=== PATIENT | female | born 1950 | race Caucasian/White ===

== ENCOUNTER 2020-06-28 08:33 | Outpatient (REF) | payer MEDICARE, OTHER, SELFPAY | END 2020-06-28 08:34 | disposition home or self-care (01) | LOC: HO.LAB 08:33 | PROVIDERS: Visit Provider Internal Medicine | DX: Z20.828 Contact with and (suspected) exposure to other viral communicable diseases (principal) | CPT/HCPCS: C9803; U0003 ==

== ENCOUNTER 2021-03-03 10:00 | Outpatient (RCR) | payer MEDICARE, OTHER, SELFPAY ==
[2021-01-24 12:58] VITALS: BP 140/70
== END 2021-04-14 15:04 | disposition home or self-care (01) ==
LOC: HO.PTCHIC 10:00
PROVIDERS: PCP Internal Medicine; Visit Provider Nurse Practitioner Adult Health
DX: H81.10 Benign paroxysmal vertigo, unspecified ear (principal)
CPT/HCPCS: 95992; 97110; 97112; 97162; 97530

== ENCOUNTER 2023-02-12 10:13 | Outpatient (REF) | payer MEDICARE, OTHER, SELFPAY ==
[2023-02-12 14:28] LABS: TSH reflex Free T4 1.48 uIU/mL (0.32-4.0)
[2023-02-12 15:29] LABS: Folate 12.3 ng/mL (> or = 4.0); Vitamin B12 702 pg/mL (200-900)
[2023-02-15 22:04] LABS: Transglutaminase Ab IgG <1.0 U/mL; Transglutaminase IgA <1.0 U/mL
[2023-02-17 12:39] LABS: Vitamin D 25-OH, D2 <4 ng/mL; Vitamin D 25-OH, D3 51 ng/mL; Vitamin D 25-OH, Total 51 ng/mL (30-100)
== END 2023-02-12 10:14 | disposition home or self-care (01) ==
LOC: HO.LAB 10:13
PROVIDERS: PCP Internal Medicine; Visit Provider Nurse Practitioner Family
DX: Z01.818 Encounter for other preprocedural examination (principal); K21.9 Gastro-esophageal reflux disease without esophagitis; K58.1 Irritable bowel syndrome with constipation; K58.0 Irritable bowel syndrome with diarrhea; K59.01 Slow transit constipation; R14.0 Abdominal distension (gaseous); R10.13 Epigastric pain; E55.9 Vitamin D deficiency, unspecified
CPT/HCPCS: 36415; 82306; 82607; 82746; 84443; 86364; 87338

== ENCOUNTER 2023-03-17 10:34 | Outpatient (AMB) | payer MEDICARE, OTHER, SELFPAY ==
[2023-03-17 10:42] VITALS: BP 129/60; PULSE 62; BMI 18.7
--- NOTE | 2023-03-17 10:42 | MHC.OFFVIS ---
Intake Vital Signs 03/17/23 10:42 Height 5 ft 8 in Weight 123 lb 0.287 oz BMI 18.7 BP 129/60 Blood Pressure Location Lt brachial Position Sitting Pulse 62 Intake Visit Reasons: 5 week fu Intake Note: Romelia presents in office as a est.patient for a 5wk f/u for IBS, GERD, CIC. 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 Patient denies melena, hematochezia, unintentional weight loss or ribbon like stools. Postprandial abdominal bloating Patient reports postprandial abdominal bloating. Discussed with patient low FODMAP diet. List of food recommended as well as list of food to avoid given to patient. Patient also reports occasional dyspepsia and epigastric discomfort and we will check for H pylori, check transglutaminase. Constipation Patient reports constipation. Will send her script for Linzess. Patient was encouraged to increase fluid intake and activity to promote better bowel motility. Dyspepsia Patient reports occasional dyspepsia. Will give patient famotidine twice a day. Patient does have osteopenia with rather not take PPI. However if H pylori positive patient will need to be on short treatment with PPI. I will see patient 5 weeks, sooner on as needed basis. Patient is agreeable to this plan and verbalizes understanding of instructions. She was given the opportunity to ask questions and all questions answered. ? Thank you for allowing me to participate in her care we Plan Orders Orders Vitamin B12 and Folate 02/12/23 R19.7 TSH reflex Free T4 02/12/23 K59.00 Vitamin D 25-OH (D2 and D3) 02/12/23 E55.9 Transglutaminase IgA 02/12/23 R10.9 Transglutaminase Ab IgG 02/12/23 R10.9 H pylori Ag Stool 02/12/23 K21.9 Medications New linaclotide (Linzess) 72 mcg PO DAILY 30 caps 2RF famotidine (Pepcid) 20 mg PO BID 60 tabs 3RF K29.70 TODAY'S VISIT Patient is here today for follow-up and to discuss going for colonoscopy. Patient had colonoscopy in February of 2012. Patient had upper endoscopy in 2019. Patient continues with severe epigastric discomfort and burning. Patient reports that she eats fairly healthy. States that famotidine is not helpful. She continues with symptoms of dyspepsia without dysphagia or odynophagia. However patient does admit that occasionally in the morning she has trouble swallowing bread. Patient can not eat anything dry without feeling like it is getting stuck. Patient continues to have trouble moving her bowels. States that she is able to move her bowels when she take Linzess, he however does not feel like she empties them completely. Patient reports a long history of having constipation. Patient states that she eats lots of fruits and vegetables. Denies melena, hematochezia, unintentional weight loss or ribbon like stools. Patient denies any issues with anesthesia in the past. No history of sleep apnea. Not on any anticoagulation medication. Denies any cardiac or respiratory symptoms. [facility] Surgical History Hx of discectomy Family History Mother High cholesterol HTN (hypertension) Father HTN (hypertension) Diabetes Heart disease Social History Household Members: Significant Other Alcohol intake: never Patient Tobacco Use Status: Never used Tobacco Review of Systems Const Denies weight gain and Denies weight loss ENT Reports no additional complaints, Reports dysphagia and Denies odynophagia Card Reports no additional complaints Resp Reports no additional complaints GI Denies abdominal pain, Denies belching, Denies melena, Reports bloating, Denies change in bowel habits, Reports constipation, Reports dysphagia, Denies excessive flatus, Reports dyspepsia, Reports heartburn, Denies diarrhea, Denies loose stools, Denies nausea, Denies odynophagia and Denies vomiting Reports no additional complaints Musc Reports no additional complaints Neuro Reports no additional complaints Psych Reports no additional complaints Endo Reports no additional complaints Physical Exam Vital Signs: Last Vital Signs Pulse 62 03/17/23 10:42 BP 129/60 03/17/23 10:42 BMI result Body Mass Index 18.7 Const General: healthy appearing, no acute distress and well developed Nutritional Appearance: well nourished Orientation/consciousness: patient oriented x3 HEENT Head: Yes normal to inspection, Yes normocephalic and Yes atraumatic Face and sinus: Yes normal facial exam Mouth: Normal oral and palatal mucosa present Throat: Yes posterior oropharynx normal, Yes tonsils normal and Yes uvula midline Eyes General: appearance normal, both eyes and all related structures Neck Neck: Yes normal visual inspection, Yes full ROM and Yes trachea midline Thyroid: Thyroid normal Resp Effort & Inspection: normal respiratory effort, able to speak in complete sentences, no tracheal deviation and symmetric chest movement Auscultation: clear to auscultation bilaterally Cardio Rate: regular rate Heart sounds: S1 normal heart sound present and S2 normal heart sound present GI Inspection: Yes normal to inspection and No distended Palpation (GI): Soft to palpation, not firm, nontender and No hepatosplenomegaly present Auscultation: normal bowel sounds General: Yes no CVA tenderness Back/Spine/Pelvis Back: no CVA tenderness Skin General skin exam: elasticity normal, turgor normal and dry skin Neuro General: patient oriented x3 Psych Appearance: grossly normal Mental Status: mental status grossly normal Speech and movement: Normal speech and movement present Results Reviewed Results Reviewed: Laboratory Tests 02/12/23 02/12/23 02/12/23 11:44 11:44 11:44 Vitamin B12 702 25-OH Vitamin D Total 51 Folate 12.3 TSH 1.48 Tiss Transglutamin IgG Tiss Transglutamin IgA 02/12/23 11:44 Vitamin B12 25-OH Vitamin D Total Folate TSH Tiss Transglutamin IgG <1.0 Tiss Transglutamin IgA <1.0 H pylori negative Assessment & Plan Assessment & Plan (1) Screen for colon cancer: Code(s): Z12.11 - Encounter for screening for malignant neoplasm of colon Plan: Patient denies any issues with anesthesia in the past. Last colonoscopy in 2011. Patient denies melena, hematochezia, unintentional weight loss or ribbon like stools. Patient is not on any anticoagulation therapy. No history of sleep apnea. Discussed with patient the importance of good bowel prep day before the procedure. The I will increase her Linzess to 145 mcg daily. What to expect before during and after the procedure discussed with patient. (2) Postprandial abdominal bloating: Code(s): R14.0 - Abdominal distension (gaseous) Plan: Patient reports postprandial abdominal bloating. Specially when she is having trouble moving her bowels. Low FODMAP diet discussed with patient. List of food recommended as well as list of food to avoid given to patient. (3) Constipation: Code(s): K59.00 - Constipation, unspecified Qualifiers: Constipation type: chronic idiopathic constipation Qualified Code(s): K59.04 - Chronic idiopathic constipation Plan: Long history of constipation. Increased Linzess to 145 mcg daily. Patient was also encouraged to increase fluid intake and activity to promote better bowel motility. (4) GERD (gastroesophageal reflux disease): Code(s): K21.9 - Gastro-esophageal reflux disease without esophagitis Qualifiers: Esophagitis presence: esophagitis presence not specified Qualified Code(s): K21.9 - Gastro-esophageal reflux disease without esophagitis Plan: Patient can stop famotidine. She can take it on as needed basis at bedtime. I will start her on omeprazole every morning. Patient will be sent for upper endoscopy. Discussed with patient avoiding dietary triggers in late night snacking. Staying upright for minimal 3 hours after meals discussed with patient. (5) Dyspepsia: Code(s): R10.13 - Epigastric pain Plan: Patient reports dyspepsia with occasional dysphagia specially in the morning. Patient will be sent for upper endoscopy to rule out Schatzki ring, severe reflux, eosinophilic esophagitis, gastritis, gastric or duodenal ulcer, Mcnair's. I will see patient after the procedure, sooner on as needed basis. Patient is agreeable to this plan and verbalizes understanding of instructions. She was given the opportunity to ask questions and all questions answered. Thank you for allowing me to participate in her care Medications: New linaclotide (Linzess) 145 mcg PO DAILY 30 caps 4RF K59.04 - Chronic idiopathic constipation omeprazole 20 mg PO DAILY 30 caps 3RF K21.9 - Gastro-esophageal reflux disease without esophagitis Discontinued linaclotide (Linzess) Discontinued Reason: Doctor's Order 72 mcg PO DAILY 30 caps 2RF famotidine (Pepcid) Discontinued Reason: Doctor's Order 20 mg PO BID 60 tabs 3RF K29.70 - Gastritis, unspecified, without bleeding Coding Level of Care Code Est Pt Level 4 (81491) Diagnoses Screen for colon cancer Z12.11 Postprandial abdominal bloating R14.0 Constipation K59.04 Constipation type: chronic idiopathic constipation GERD (gastroesophageal reflux disease) K21.9 Esophagitis presence: esophagitis presence not specified Dyspepsia R10.13 Time Spent (min) 35 Comment 20 minutes spent with patient and additional 15 minutes spent reviewing her records
== END 2023-03-17 11:23 | disposition home or self-care (01) ==
PROVIDERS: PCP Internal Medicine; Visit Provider Nurse Practitioner Family
DX: R14.0 Abdominal distension (gaseous) (principal); K59.04 Chronic idiopathic constipation; K21.9 Gastro-esophageal reflux disease without esophagitis; R10.13 Epigastric pain
CPT/HCPCS: 99214

== ENCOUNTER → 2023-03-17 10:34 | Outpatient (BNVA) | payer MEDICARE, OTHER, SELFPAY | PROVIDERS: PCP Internal Medicine; Visit Provider Nurse Practitioner Family | DX: R14.0 Abdominal distension (gaseous) (principal); K59.04 Chronic idiopathic constipation; K21.9 Gastro-esophageal reflux disease without esophagitis; R10.13 Epigastric pain | CPT/HCPCS: 99212 ==

== ENCOUNTER 2023-07-20 12:02 | Day surgery (SDC) | payer MEDICARE, OTHER, SELFPAY ==
--- NOTE | 2023-07-19 12:29 | HO.ANESPROP2 ---
Documented by User: Rosanna Mueller NP 07/19/23 12:30 HPI - Anesthesia Eval Consult details Narrative: 73yo F for Upper Endoscopy and Colonoscopy FOR[facility]LY [facility], [facility] Past Medical History Medical History Lyme disease Vertigo Migraines GERD (gastroesophageal reflux disease) Osteoarthritis Migraine Osteopenia Fibromyalgia Constipation GERD (gastroesophageal reflux disease) Family History Family History Mother High cholesterol HTN (hypertension) Father HTN (hypertension) Diabetes Heart disease Surgical History Surgical History History of surgery History of rectal surgery Hx of discectomy Social History Social History Household Members: Significant Other Alcohol intake: never Patient Tobacco Use Status: Never used Tobacco Use of substances other than those prescribed or required for medical reasons: No Are you DNR?: No Advance Directives: No Advance Directives Information Provided: Yes Meds Allergies Allergy/AdvReac Type Severity Reaction Status Date / Time hydroxychloroquine Allergy Severe Anaphylaxis Verified 07/20/23 12:50 [Plaquenil] From [facility] Allergy Severe FACIAL Uncoded 07/20/23 12:50 SWELLING, THRUSH Erythromycin AdvReac Mild Abdominal Uncoded 07/20/23 12:50 Pain Home Medications Medication Instructions Recorded Confirmed Last Taken Type desipramine 10 mg tablet 10 mg PO BEDTIME 02/12/23 Unknown History meclizine 25 mg tablet 25 mg PO DAILY PRN 02/12/23 Unknown History sumatriptan succinate 25 mg tablet 25 mg PO Q2-4H PRN 02/12/23 Unknown History Assessment and Plan Assessment Anesthesia Assessment: Chart Reviewed Documented by User: Arash Lombardo MD 07/20/23 13:52 FOR[facility]LY [facility] Past Medical History Medical History Lyme disease Vertigo Migraines GERD (gastroesophageal reflux disease) Osteoarthritis Migraine Osteopenia Fibromyalgia Constipation GERD (gastroesophageal reflux disease) Family History Family History Mother High cholesterol HTN (hypertension) Father HTN (hypertension) Diabetes Heart disease Family history of problems with anesthesia: No Surgical History Surgical History History of surgery History of rectal surgery Hx of discectomy History of Problems with Anesthesia: No Social History Social History Household Members: Significant Other Alcohol intake: never Patient Tobacco Use Status: Never used Tobacco Use of substances other than those prescribed or required for medical reasons: No Are you DNR?: No Advance Directives: No Advance Directives Information Provided: Yes Meds Allergies Allergy/AdvReac Type Severity Reaction Status Date / Time hydroxychloroquine Allergy Severe Anaphylaxis Verified 07/20/23 12:50 [Plaquenil] From [facility] Allergy Severe FACIAL Uncoded 07/20/23 12:50 SWELLING, THRUSH Erythromycin AdvReac Mild Abdominal Uncoded 07/20/23 12:50 Pain Home Medications Medication Instructions Recorded Confirmed Last Taken Type desipramine 10 mg tablet 10 mg PO BEDTIME 02/12/23 Unknown History meclizine 25 mg tablet 25 mg PO DAILY PRN 02/12/23 Unknown History sumatriptan succinate 25 mg tablet 25 mg PO Q2-4H PRN 02/12/23 Unknown History Exam Airway Mallampati Class: II TM Dist: >3cm Neck ROM: Full Loose/Missing/Broken Teeth: Yes Assessment and Plan Assessment Anesthesia Assessment: Anesthesia Plan Discussed Final Anesthetic Review Family History of Problems with Anesthesia: No History of Problems with Anesthesia: No NPO: Yes ASA Class: II Final Preanesthetic Review: No Changes in Pt Med Stat, Meds/Allgs Chart Reviewed, Consent Obtained/Reviewed and Anes Risks/Benef Reviewed Patient Risk: Low Procedure Risk: Low Anesthetic Plan Anesthetic Plan: MAC: Disposition: Standard PACU
[2023-07-20 12:41] VITALS: BMI 20.7
[2023-07-20 12:54] VITALS: BP 130/40; PULSE 54; RESP 16; TEMP 37.1; O2SAT 99
[2023-07-20] MEDS: Lactated Ringers 1,000 ML 100 ML IVCONT (13:13)
--- NOTE | 2023-07-20 13:45 | MHC.SHP ---
Pre-Procedural Eval Section A Date of Service: 07/20/23 Section B Chief Complaint: gerd Relevant Family History (Specify if Yes): No Relevant Social History: None Present Medications: see Short Stay Collaborative assessment Medical History: Significant History (Lyme disease Vertigo Migraines GERD (gastroesophageal reflux disease) Osteoarthritis Migraine Osteopenia Fibromyalgia Constipation GERD (gastroesophageal reflux disease)) History of Previous Operations: Relevant previous surgery/procedure and date(s) (History of surgery History of rectal surgery Hx of discectomy) Allergies: Allergies Allergy/AdvReac Type Severity Reaction Status Date / Time hydroxychloroquine Allergy Severe Anaphylaxis Verified 07/20/23 12:50 [Plaquenil] From [facility] Allergy Severe FACIAL Uncoded 07/20/23 12:50 SWELLING, THRUSH Erythromycin AdvReac Mild Abdominal Uncoded 07/20/23 12:50 Pain Review of Systems Sugical H&P ROS: Negative: Constitution, Cardiovascular, Respiratory, Neurological, Psychiatric, Hem-Onc, Allergic/Immunologic, Gastrointestinal, Genitourinary, Musculoskeletal, Integumentary, Endocrine and Eyes/Ears/Nose/Throat Exam Surgical H&P Exam: Normal: HEENT, Normal: Heart, Normal: Lungs, Normal: Extremities, Normal: Abdomen, Normal: Skin and Normal: Neurological Plan Diagnosis/Plan: Unchanged I have reviewed the history and physical and performed a pertinent physical examination on my patient. No changes have occurred unless specified. Time Spent With Patient Time: Total time managing care of this patient today ____ minutes.
--- NOTE | 2023-07-20 14:14 | W.PM.OPN ---
Operative Note Operative Note Date of Service: 07/20/23 Narrative: Operative Information Procedure Description: EGD, Colonoscopy Indication: GERd, screening Anesthesia: MAC FLEXIBLE TRANSORAL UPPER GASTROINTESTINAL ENDOSCOPY AND COLONOSCOPY PROCEDURE NOTE UPPER ENDOSCOPY Consent: Indications for the procedure and potential complications of bleeding, perforation, reaction to medications and missed diagnosis were discussed with the patient and informed consent was obtained. Instrument: Olympus GIF H 190 J mid size upper endoscope Monitoring: Vital signs and clinical assessment, continuous EKG monitoring, Pulse oximetry, Carbon Dioxide monitoring and blood pressure monitoring were done throughout the procedure. Procedure: The patient was placed in the left lateral decubitis position and pre-procedure medications were administered and a bite block was placed. The endoscope was inserted into the mouth and advanced under direct vision to the third part of duodenum. A careful inspection was made as the upper endoscope was withdrawn including a retroflexed examination of the proximal stomach; Findings and interventions are described below. Findings: Larynx:normal Esophagus: GE junction at 35 cm, diaphragm hiatus at 35 cm, esophagitis at GEJ Stomach: Patchy erythema . Biopsies were obtained. Grade 2 flap valve on retroflexed examination of the cardia. 4-6 mm polyp in fundus removed with cold biopsy forceps Duodenum: Normal bulb and descending duodenum, Intervention: Biopsies as noted above COLONOSCOPY Instrument: Olympus variable stiffness pediatric scope 190L Colonoscopy Monitoring: Vital signs and clinical assessment, continuous EKG monitoring, Pulse oximetry, Carbon Dioxide monitoring and blood pressure monitoring were done throughout the procedure. Colon withdrawal time was 8 minutes. Procedure: The patient was placed in the left lateral decubitis position and pre-procedure medications were administered. After a digital rectal examination of the ano-rectum, the video colonoscope was inserted into the rectum and advanced through the colon to the cecum/TI. The colonoscope was slowly withdrawn in a retrograde panoramic fashion and the colon mucosa was carefully examined including a retroflexed view of the rectum. Findings and interventions are described below. Procedure Difficulty:easy Findings: Terminal Ileum-normal Melanosis coli throughout colon Cecum:normal Ascending Colon: 10 mm sessile polyp remvoed with cold snare Transverse Colon -normal Descending Colon:normal Sigmoid Colon: normal Rectum: Retroflexion with small internal hemorrhoids, grade I Anorectum - normal Colon preparation: [place] Bowel Preparation Scale Right colon; 2 Transverse colon: 2 Left colon; 2 (0 = Unprepared colon segment with mucosa not seen due to solid stool that cannot be cleared. 1 = Portion of mucosa of the colon segment seen, but other areas of the colon segment not well seen due to staining, residual stool and/or opaque liquid. 2 = Minor amount of residual staining, small fragments of stool and/or opaque liquid, but mucosa of colon segment seen well. 3 = Entire mucosa of colon segment seen well with no residual staining, small fragments of stool or opaque liquid) Impression and Post Procedure Diagnosis: Endoscopy Findings: gastritis polyp Colonoscopy Findings: polyp internal hemorrhoids Plan: Await Pathology results Repeat Colonoscopy in 5 years or earlier if clinically indicated High fiber diet leaflet avoid straining at stool, epsom salts and sitz bath, anusol supps or cream if h pylori pos then treat Above findings were reviewed with the patient and relevant handouts were provided if indicated.
[2023-07-20 14:40] VITALS: BP 125/54; PULSE 62; RESP 16; TEMP 36.1; O2SAT 99
[2023-07-20 14:55] VITALS: BP 139/45; PULSE 56; RESP 16; TEMP 36.6; O2SAT 99
== END 2023-07-20 15:33 | disposition home or self-care (01) ==
PROVIDERS: PCP Internal Medicine; Visit Provider Internal Medicine Gastroenterology
PROC: (CPT 45385; principal; 2023-07-20 14:10)
DX: Z12.11 Encounter for screening for malignant neoplasm of colon (principal); K63.5 Polyp of colon; K63.89 Other specified diseases of intestine; K64.0 First degree hemorrhoids; K59.00 Constipation, unspecified; K21.9 Gastro-esophageal reflux disease without esophagitis; K31.7 Polyp of stomach and duodenum; K20.80 Other esophagitis without bleeding; K29.50 Unspecified chronic gastritis without bleeding; K44.9 Diaphragmatic hernia without obstruction or gangrene; M79.7 Fibromyalgia; M19.90 Unspecified osteoarthritis, unspecified site; M85.80 Other specified disorders of bone density and structure, unspecified site; A69.20 Lyme disease, unspecified; R42 Dizziness and giddiness; G43.909 Migraine, unspecified, not intractable, without status migrainosus; Z79.899 Other long term (current) drug therapy; Z88.1 Allergy status to other antibiotic agents; Z88.8 Allergy status to other drugs, medicaments and biological substances; Z98.890 Other specified postprocedural states
CPT/HCPCS: 45385; 43239; 88305; 88342; J2704

== ENCOUNTER → 2023-07-20 12:02 | Outpatient (BNV) | payer MEDICARE, OTHER, SELFPAY | PROVIDERS: PCP Internal Medicine; Visit Provider Internal Medicine Gastroenterology | DX: Z12.11 Encounter for screening for malignant neoplasm of colon (principal); K21.9 Gastro-esophageal reflux disease without esophagitis; K31.7 Polyp of stomach and duodenum; D12.2 Benign neoplasm of ascending colon; K64.0 First degree hemorrhoids; K63.89 Other specified diseases of intestine | CPT/HCPCS: 43250; 45385 ==

== ENCOUNTER 2023-08-18 11:23 | Outpatient (AMB) | payer MEDICARE, OTHER, SELFPAY ==
--- NOTE | 2023-08-18 11:26 | MHC.OFFVIS ---
Intake Vital Signs 08/18/23 11:29 Height 5 ft 4 in Weight 120 lb BMI 20.6 BP 118/55 L Blood Pressure Location Lt brachial Position Sitting Pulse 65 Intake Visit Reasons: s/p egd/colon Intake Note: Patient follow up for EGD/Colonoscopy results. Patient cc: chronic constipation, and some swallowing problems and denies any GI issues. Site Physician Required: No Accompanied by: Self / Same As Patient Allergies hydroxychloroquine [Plaquenil] Allergy (Severe, Verified 08/18/23 11:26) Anaphylaxis From PLAQUENIL Allergy (Severe, Uncoded 07/20/23 12:50) FACIAL SWELLING, THRUSH Erythromycin Adverse Reaction (Mild, Uncoded 07/20/23 12:50) Abdominal Pain HPI s/p egd/colon HPI Details LAST VISIT Screen for colon cancer Patient denies any issues with anesthesia in the past. Last colonoscopy in 2011. Patient denies melena, hematochezia, unintentional weight loss or ribbon like stools. Patient is not on any anticoagulation therapy. No history of sleep apnea. Discussed with patient the importance of good bowel prep day before the procedure. The I will increase her Linzess to 145 mcg daily. What to expect before during and after the procedure discussed with patient. Postprandial abdominal bloating Patient reports postprandial abdominal bloating. Specially when she is having trouble moving her bowels. Low FODMAP diet discussed with patient. List of food recommended as well as list of food to avoid given to patient. Constipation Long history of constipation. Increased Linzess to 145 mcg daily. Patient was also encouraged to increase fluid intake and activity to promote better bowel motility. GERD (gastroesophageal reflux disease) Patient can stop famotidine. She can take it on as needed basis at bedtime. I will start her on omeprazole every morning. Patient will be sent for upper endoscopy. Discussed with patient avoiding dietary triggers in late night snacking. Staying upright for minimal 3 hours after meals discussed with patient. Dyspepsia Patient reports dyspepsia with occasional dysphagia specially in the morning. Patient will be sent for upper endoscopy to rule out Schatzki ring, severe reflux, eosinophilic esophagitis, gastritis, gastric or duodenal ulcer, Mcnair's. I will see patient after the procedure, sooner on as needed basis. Patient is agreeable to this plan and verbalizes understanding of instructions. She was given the opportunity to ask questions and all questions answered. ? Thank you for allowing me to participate in her care Plan Medications New linaclotide (Linzess) 145 mcg PO DAILY 30 caps 4RF K59.04 - Chronic idiopathic constipation omeprazole 20 mg PO DAILY 30 caps 3RF K21.9 - Gastro-esophageal reflux disease without esophagitis Discontinued linaclotide (Linzess) Discontinued Reason: Doctor's Order 72 mcg PO DAILY 30 caps 2RF famotidine (Pepcid) Discontinued Reason: Doctor's Order 20 mg PO BID 60 tabs 3RF K29.70 - Gastritis, unspecified, without bleeding UPPER ENDOSCOPY AND COLONOSCOPY ENDOSCOPY Findings: Larynx:normal Esophagus: GE junction at 35 cm, diaphragm hiatus at 35 cm, esophagitis at GEJ Stomach: Patchy erythema . Biopsies were obtained. Grade 2 flap valve on retroflexed examination of the cardia. 4-6 mm polyp in fundus removed with cold biopsy forceps Duodenum: Normal bulb and descending duodenum, Intervention: Biopsies as noted above COLONOSCOPY Findings: Terminal Ileum-normal Melanosis coli throughout colon Cecum:normal Ascending Colon: 10 mm sessile polyp remvoed with cold snare Transverse Colon -normal Descending Colon:normal Sigmoid Colon: normal Rectum: Retroflexion with small internal hemorrhoids, grade I Anorectum - normal Colon preparation: [place] Bowel Preparation Scale Right colon; 2 Transverse colon: 2 Left colon; 2 (0 = Unprepared colon segment with mucosa not seen due to solid stool that cannot be cleared. 1 = Portion of mucosa of the colon segment seen, but other areas of the colon segment not well seen due to staining, residual stool and/or opaque liquid. 2 = Minor amount of residual staining, small fragments of stool and/or opaque liquid, but mucosa of colon segment seen well. 3 = Entire mucosa of colon segment seen well with no residual staining, small fragments of stool or opaque liquid) Impression and Post Procedure Diagnosis: Endoscopy Findings: gastritis polyp Colonoscopy Findings: polyp internal hemorrhoids Plan: Await Pathology results Repeat Colonoscopy in 5 years or earlier if clinically indicated High fiber diet leaflet PATHOLOGY RESULTS: Diagnosis A. Stomach, biopsy: Antral-type and oxyntic mucosa with mild chronic inactive inflammation; no Helicobacter organisms seen. B. Stomach, polyp: Oxyntic mucosa with mild chronic inactive inflammation and surface hyperplastic changes; no Helicobacter organisms seen. C. Colon, ascending, polypectomy: Vegetable material only; no colonic tissue identified TODAY'S VISIT: Patient is here today for follow-up and to discuss upper endoscopy and colonoscopy results. Mild gastritis and polyps found. 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 Patient is taking mastic gum daily. Has tried Linzess, however states that she has no results. Patient has no results when drinking tea, however was told to stop due to discoloration Of the colon. Patient continues to report to have dysphagia. Patient has seen ENT in the past, however she was seeing them for vertigo. Patient was told that she had sinus issues and migraine headaches, however was told that her migraine headaches were caused by vascular congestion. Patient reports that she has multiple allergy, to different kind of mold and environmental allergy. Was taking Zyrtec, however states that she felt very dehydrated when taking it. Patient denies any nausea or vomiting. Patient denies any melena, hematochezia, unintentional weight loss or ribbon like stools. No issues with either procedure. [facility] Medical History Lyme disease Vertigo Migraines GERD (gastroesophageal reflux disease) Osteoarthritis Migraine Osteopenia Fibromyalgia Constipation GERD (gastroesophageal reflux disease) Surgical History History of surgery History of rectal surgery Hx of discectomy Family History Mother High cholesterol HTN (hypertension) Father HTN (hypertension) Diabetes Heart disease Social History Household Members: Significant Other Alcohol intake: never Patient Tobacco Use Status: Never used Tobacco Review of Systems Const Denies weight gain and Denies weight loss ENT Reports no additional complaints, Reports dysphagia and Denies odynophagia Card Reports no additional complaints Resp Reports no additional complaints GI Denies abdominal pain, Denies belching, Denies melena, Denies bloating, Reports constipation, Reports dysphagia, Denies excessive flatus, Denies dyspepsia, Denies heartburn, Denies diarrhea, Denies loose stools, Denies nausea, Denies odynophagia and Denies vomiting Reports no additional complaints Musc Reports no additional complaints Neuro Reports no additional complaints Psych Reports no additional complaints Endo Reports no additional complaints Physical Exam Vital Signs: Last Vital Signs Pulse 65 08/18/23 11:29 BP 118/55 L 08/18/23 11:29 BMI result Body Mass Index 20.6 Const General: healthy appearing, no acute distress and well developed Nutritional Appearance: well nourished Orientation/consciousness: patient oriented x3 Resp Effort & Inspection: normal respiratory effort, able to speak in complete sentences, no tracheal deviation and symmetric chest movement Auscultation: clear to auscultation bilaterally Cardio Rate: regular rate GI Inspection: Yes normal to inspection and No distended Palpation (GI): Soft to palpation, not firm, nontender and No hepatosplenomegaly present Auscultation: normal bowel sounds General: Yes no CVA tenderness Back/Spine/Pelvis Back: no CVA tenderness Skin General skin exam: elasticity normal, turgor normal and dry skin Neuro General: patient oriented x3 Psych Appearance: grossly normal Mental Status: mental status grossly normal Assessment & Plan Assessment & Plan (1) Postprandial abdominal bloating: Code(s): R14.0 - Abdominal distension (gaseous) (2) Constipation: Code(s): K59.00 - Constipation, unspecified Qualifiers: Constipation type: slow transit constipation Qualified Code(s): K59.01 - Slow transit constipation (3) GERD (gastroesophageal reflux disease): Code(s): K21.9 - Gastro-esophageal reflux disease without esophagitis Qualifiers: Esophagitis presence: without esophagitis Qualified Code(s): K21.9 - Gastro-esophageal reflux disease without esophagitis (4) Dyspepsia: Code(s): R10.13 - Epigastric pain (5) Dysphagia: Code(s): R13.10 - Dysphagia, unspecified Qualifiers: Dysphagia type: oropharyngeal phase Qualified Code(s): R13.12 - Dysphagia, oropharyngeal phase Plan No biopsy obtained from esophagus, no inflammation seen, will send patient for barium swallow. In the meantime patient will go and get allergen testing done for different foods. Patient has been on Flonase in the past and has not noticed any difference. Discussed with her avoiding dietary triggers. Possible eosinophilic reaction. Patient does admit that her voice is more hoarse. Symptoms of dysphagia mostly in the morning, patient usually tries to drink protein shake in the morning as she has trouble swallowing. I will see patient in 3 months, sooner on as needed basis. Patient is agreeable to this plan and verbalizes understanding of instructions. She was given the opportunity to ask questions and all questions answered. Thank you for allowing me to participate in her care Orders: Orders Rast Allergen Today K21.9 - Gastro-esophageal reflux disease without esophagitis [place] upper GI w Ba Swallow Today R13.10 - Dysphagia, unspecified Medications: Discontinued linaclotide (Linzess) Discontinued Reason: Doctor's Order 145 mcg PO DAILY 30 caps 4RF K59.04 - Chronic idiopathic constipation Coding Level of Care Code Est Pt Level 4 (58331) Diagnoses Postprandial abdominal bloating R14.0 Slow transit constipation K59.01 Constipation type: slow transit constipation Gastroesophageal reflux disease without esophagitis K21.9 Esophagitis presence: without esophagitis Dyspepsia R10.13 Oropharyngeal dysphagia R13.12 Dysphagia type: oropharyngeal phase Time Spent (min) 35 Comment 25 minutes spent with patient and additional 10 minutes spent reviewing her records
[2023-08-18 11:29] VITALS: BP 118/55; PULSE 65; BMI 20.6
== END 2023-08-18 12:04 | disposition home or self-care (01) ==
PROVIDERS: PCP Internal Medicine; Visit Provider Nurse Practitioner Family
DX: R14.0 Abdominal distension (gaseous) (principal); K59.01 Slow transit constipation; K21.9 Gastro-esophageal reflux disease without esophagitis; R10.13 Epigastric pain; R13.12 Dysphagia, oropharyngeal phase
CPT/HCPCS: 99214

== ENCOUNTER 2023-08-18 11:23 | Outpatient (REF) | payer MEDICARE, OTHER, SELFPAY | END 2023-08-18 11:24 | disposition home or self-care (01) | LOC: HO.LAB 11:23 | PROVIDERS: PCP Internal Medicine; Visit Provider Nurse Practitioner Family | DX: K21.9 Gastro-esophageal reflux disease without esophagitis (principal); R10.13 Epigastric pain; R13.10 Dysphagia, unspecified | CPT/HCPCS: 36415; 82785; 86003; 99212 ==

== ENCOUNTER 2023-12-02 14:00 | Outpatient (RCR) | payer MEDICARE, OTHER, SELFPAY ==
[2023-09-08 10:11] VITALS: BP 131/60; PULSE 65
== END 2024-02-14 09:37 | disposition home or self-care (01) ==
LOC: HO.PT 14:00
PROVIDERS: PCP Internal Medicine; Visit Provider Nurse Practitioner Adult Health
DX: R42 Dizziness and giddiness (principal)
CPT/HCPCS: 95992; 97112; 97116; 97140; 97163